=== PATIENT | male | born 1940 | race Caucasian/White ===

== ENCOUNTER 2019-02-04 23:03 | Inpatient (IN) | payer MEDICARE, OTHER ==
[~2019-02-04] VITALS: Ht 170.2 cm; Wt 74.8 kg
[2019-02-04] MEDS ORDERED: NAMENDA10 MG PO (23:25)
[2019-02-04] MEDS ORDERED: KRILL OIL 1,001 EAC1 PO (23:25)
[2019-02-04] MEDS ORDERED: DILTIAZEM 24HR240 M4 PO (23:25)
[2019-02-04] MEDS ORDERED: CELEXA40 MG PO (23:25)
[2019-02-04] MEDS ORDERED: FUROSEMIDE20 MG (23:26)
[2019-02-04] MEDS ORDERED: DONEPEZIL HCL10 MG PO (23:27)
[2019-02-04] MEDS ORDERED: MACRODANTIN100 MG PO (23:27)
[2019-02-04] MEDS ORDERED: ALBUTEROL SULF8.5 GM INH (23:27)
[2019-02-04] MEDS ORDERED: BAYER CHEWABLE81 MG PO (23:27)
[2019-02-04] MEDS ORDERED: XANAX0.5 MG PO (23:28)
[2019-02-04] MEDS ORDERED: ALTACE10 MG PO (23:28)
[2019-02-05] VITALS (7 sets, daily range): BP systolic 125–166; BP diastolic 76–98; BMI 25.9
[2019-02-05 00:30] LABS: BASOPHILS 0.5 % (0-2); EOSINOPHILS 1.6 % (0-7); HEMATOCRIT 24.9 % (42.0-54.0); IMMATURE GRANULOCYTES 0.5 % (0-5); LYMPHOCYTES 16.8 % (15-50); MCH 21.3 pg (26.0-34.0); MCHC 28.1 g/dL (31.0-37.0); MCV 75.9 fL (80.0-100.0); MEAN PLATELET VOLUME 8.4 fL (7.4-10.4); MONOCYTES 11.1 % (2-11); NEUTROPHILS 69.5 % (40-80); RBC 3.28 10x6/uL (4.20-6.10); WBC 7.7 10x3/uL (4.8-10.8)
[2019-02-05 00:40] LABS: CALC OSMOLALITY 290 mosm/kg (275-300); CALCIUM 8.3 mg/dL (8.5-10.1); CARBON DIOXIDE 24.6 mmol/L (21.0-32.0); CHLORIDE - SERUM 109 mmol/L (98-107); GLUCOSE 124 mg/dL (74-106); POTASSIUM - SERUM 4.1 mmol/L (3.5-5.1); SODIUM 143 mmol/L (136-145); UREA NITROGEN 26 mg/dL (7-18); eGFR NON AFRICAN AMERICAN 76 mL/min (90-120)
[2019-02-05 00:41] LABS: PLATELET COUNT 208 10x3/uL (130-400)
[2019-02-05 00:42] LABS: HEMOGLOBIN 7.6 g/dL (13.5-17.5)
[2019-02-05 00:46] LABS: INR 1.22 (0.85-1.17); PROTIME 14.8 SECONDS (11.6-15.0)
[2019-02-05 00:47] LABS: APTT 33.7 SECONDS (22.8-39.4)
--- NOTE | 2019-02-05 01:00 | NUR ---
PT RESTING ON BED. DAUGHTER AT BEDSIDE. PT MAKING JOKES AT THIS TIME.
[2019-02-05 01:05] LABS: ALKALINE PHOSPHATASE 97 U/L (46-116); ALT (SGPT) 25 U/L (10-68); BILIRUBIN - TOTAL 0.36 mg/dL (0.2-1.3); CKMB 1.9 U/L (0.0-3.6); CREATINE KINASE 83 UL (21-232); MAGNESIUM - SERUM 2.1 mg/dL (1.8-2.4); PROTEIN - SERUM 6.5 g/dL (6.4-8.2); THYROID STIMULATING HORMONE 2.73 uIU/mL (0.36-3.74); TROPONIN-I 0.041 ng/mL (0.000-0.060)
[2019-02-05 01:43] LABS: APPEARANCE HAZY (CLEAR); COLOR YELLOW (YELLOW); GLUCOSE NEGATIVE (NEGATIVE); KETONE NEGATIVE (NEGATIVE); NITRITE NEGATIVE (NEGATIVE); PROTEIN NEGATIVE (NEGATIVE); SPECIFIC GRAVITY 1.015 (1.005-1.020); UROBILINOGEN NORMAL (NORMAL)
[2019-02-05 01:44] LABS: BACTERIA FEW /hpf (NEGATIVE); BILIRUBIN NEGATIVE (NEGATIVE); EPITHELIAL CELLS NSEEN /hpf (0-5); RED CELLS - URINE RARE /hpf (0-5)
[2019-02-05 01:50] LABS: UDS - AMPHET NEGATIVE QUAL (NEGATIVE); UDS - BARB NEGATIVE QUAL (NEGATIVE); UDS - BENZO POSITIVE QUAL (NEGATIVE); UDS - COCAINE NEGATIVE QUAL (NEGATIVE); UDS - OPIATE NEGATIVE QUAL (NEGATIVE); UDS - PCP NEGATIVE QUAL (NEGATIVE); UDS - THC NEGATIVE QUAL (NEGATIVE)
--- NOTE | 2019-02-05 03:44 | NUR ---
NO TELEMETRY MONITORS AVAILABLE.
--- NOTE | 2019-02-05 08:30 | NUR ---
PATIENT PULLED IV OUT WITH CATH TIP INTACT. BLOOD ON FLOOR, BED AND GOWN. CLEANED UP AND RESTARTED IV IN RIGHT FA X 1 STICK. PATIENT TOLERATED WITH SMALL AMOUNT OF PAIN. BLOOD RESTARTED AT THIS TIME. FAMILY AT BEDSIDE. PATIENT BACK TO BED. BED ALARM ON. CALL IGHT WITHIN REACH.
--- NOTE | 2019-02-05 09:20 | NUR ---
PATIENT IN BED WITH EYES CLOSED AT THIS TIME. IV INTACT. BLOOD FINISHED VS STABLE. PATIENT A LITTLE TACHYCARDIAC AT 108. CALLED MONITOR STATION AGAIN. STATED NO TELE AVAILABLE AT THIS TIME. PATIENT PULSE WAS READING 128 ON LAST VS. TOLL BRIDGE OPERATOR STATED HE WAS MOVING AROUND WHILE TRYING TO TAKE VS. WILL CONTINUE TO MONITOR. ASKED COSTA FROM MONITOR STATION TO LET ME KNOW WHEN ON BECOMES AVAILABLE FOR PATIENT. VERBALIZED UNDERSTANDING.
--- NOTE | 2019-02-05 12:45 | NUR ---
PATIENT REFUSING TO GET IN SHOWER. SPOKE WITH DAUGHTER EARLIER AND SHE STATED SHE WANTED HIM TO HAVE A SHOWER. TRIED TO HELP PATIENT OFF OF TOILET AND INTO SHOWER AT THIS TIME. REFUSES TO GET UP AND STATED HE IS WAITING FOR HIS . EXPLAINED I WOULD WAIT FOR AND DAUGHTER TO GET BACK. VERBALIZED UNDERSTANDING. CALL LIGHT WITHIN REACH.
--- NOTE | 2019-02-05 14:00 | NUR ---
PATIET IN BED WITH EYES CLOSED RESTING QUIETLY. CALL LIGHT WITHIN REACH.FAMILY AT BEDSIDE.
--- NOTE | 2019-02-05 18:15 | NUR ---
CHANGED PATIENTS SHEETS AT THIS TIME. ASKED ENAMEL SHADER TO ASK KNITTING SUPERVISOR ENAMEL SHADER TO LET THEM KNOW THE PATIENT WOULD LIKE A SHOWER. VERBALIZED UNDERSTANDING. CALL LIGHT WITHIN REACH.
[2019-02-05 18:50] LABS: % SATURATION 10 % (15-55); IRON 51 ug/dl (35-150); TOTAL IRON BIND CAPACITY 469 ug/dl (260-445); UNSAT IRON BIND CAPACITY 418 ug/dl (150-375)
[2019-02-05 18:57] LABS: CKMB 1.7 U/L (0.0-3.6); CREATINE KINASE 73 UL (21-232); TROPONIN-I 0.055 ng/mL (0.000-0.060)
--- NOTE | 2019-02-05 19:15 | NUR ---
PATIENT ALERT, CONFUSED TO TIME, PLACE, AND SITUATION. AND TWO DAUGHTERS AT BEDSIDE. PATIENT HAS RIGHT FOREARM IV THAT IS SALINE LOCKED AT THIS TIME. PATIENT INCONTINENT TO URINE AT TIMES. GETS UP TO THE BATHROOM WITH ASSISTANCE. FALL PRECAUTIONS IN PLACE. DISCUSSED PLAN OF CARE WITH FAMILY. FAMILY VERBALIZES UNDERSTANDING. DENIES FURTHER NEEDS AT THIS TIME. CALL LIGHT IN REACH. PROVIDED EDUCATION TO FAMILY AND PATIENT ON HOW TO USE. DENIES FURTHER NEEDS AT THIS TIME. CPOC.
--- NOTE | 2019-02-06 00:02 | NUR ---
PATIENT UPSET WITH . YELLING AND IRRITABLE. CALLED POPCORN VENDOR FOR GINA BURROUGHS.
[2019-02-06 01:01] LABS: CKMB 1.2 U/L (0.0-3.6); CREATINE KINASE 69 UL (21-232); TROPONIN-I 0.053 ng/mL (0.000-0.060)
--- NOTE | 2019-02-06 02:09 | NUR ---
I have reviewed this patient and I concur with the Shift Assessment completed by the Licensed Practical Nurse today this shift.
[2019-02-06 05:31] VITALS: BP 151/83
[2019-02-06 06:49] LABS: BASOPHILS 0.3 % (0-2); EOSINOPHILS 0.9 % (0-7); HEMATOCRIT 25.1 % (42.0-54.0); IMMATURE GRANULOCYTES 0.1 % (0-5); LYMPHOCYTES 12.3 % (15-50); MCH 21.9 pg (26.0-34.0); MCHC 29.1 g/dL (31.0-37.0); MCV 75.1 fL (80.0-100.0); MEAN PLATELET VOLUME 9.2 fL (7.4-10.4); MONOCYTES 10.4 % (2-11); PLATELET COUNT 214 10x3/uL (130-400); RBC 3.34 10x6/uL (4.20-6.10); WBC 6.7 10x3/uL (4.8-10.8)
--- NOTE | 2019-02-06 06:55 | NUR ---
CONFUSED, A&O X 1. NO C/O PAIN. NO S/S OF ACUTE DISTRESS NOTED. IV TO RIGHT FOREARM, SL. SITE PATENT WITHOUT REDNESS OR SWELLING. HGB 7.3 THIS AM. JENNIFER ALARM ON. DENIES ANY NEEDS AT THIS TIME. CALL LIGHT IN REACH. WILL CONTINUE TO MONITOR.
[2019-02-06 07:10] LABS: HEMOGLOBIN 7.3 g/dL (13.5-17.5)
[2019-02-06 07:23] LABS: CALC OSMOLALITY 286 mosm/kg (275-300); CALCIUM 8.1 mg/dL (8.5-10.1); CARBON DIOXIDE 24.7 mmol/L (21.0-32.0); CHLORIDE - SERUM 107 mmol/L (98-107); CKMB 1.3 U/L (0.0-3.6); CREATINE KINASE 70 UL (21-232); CREATININE - SERUM 1.1 mg/dL (0.6-1.3); GLUCOSE 91 mg/dL (74-106); MAGNESIUM - SERUM 1.9 mg/dL (1.8-2.4); POTASSIUM - SERUM 3.9 mmol/L (3.5-5.1); SODIUM 142 mmol/L (136-145); UREA NITROGEN 25 mg/dL (7-18); eGFR NON AFRICAN AMERICAN 68 mL/min (90-120)
[2019-02-06 08:25] VITALS: BP 121/78
[2019-02-06 13:07] VITALS: BP 137/90
[2019-02-06 13:31] LABS: % SATURATION 5 % (15-55); IRON 23 ug/dl (35-150); TOTAL IRON BIND CAPACITY 428 ug/dl (260-445); UNSAT IRON BIND CAPACITY 405 ug/dl (150-375)
[2019-02-06 13:51] VITALS: Ht 170.2 cm; Wt 74.8 kg
--- NOTE | 2019-02-06 14:39 | NUR ---
OT NOTE: PT REQUIRED EXTENSIVE COG CUES FOR SAFETY TO DECREASE FALL RISK. PT COMPLETED TOILETING TASKS WITH HYGIENE. PT REQUIRED MOD A FOR HYGIENE TASKS. PT COMPLETED BUE AROM AXS. PT COMPLETED ADL MOB WITH CGA SECONDARY TO DECREASED SAFETY AWARENESS. [phone] THANK YOU, BARBARA RIGGS
--- NOTE | 2019-02-06 15:49 | NUR ---
I have reviewed this patient and I concur with the Shift Assessment completed by the Licensed Practical Nurse today this shift.
--- NOTE | 2019-02-06 19:45 | NUR ---
PT SITTING UP IN BED WITHOUT DISTRESS, ALERT AND ORIENTED TO SELF ONLY. DAUGHTER AT BEDSIDE. IV LEFT FA INFUSING IRON AT THIS TIME. PT AND FAMILY DENY NEEDS AT THIS TIME. CL IN REACH, WILL CTM
[2019-02-06 20:30] VITALS: BP 116/72
[2019-02-07 00:22] VITALS: BP 130/82
[2019-02-07 04:45] VITALS: BP 129/85
[2019-02-07 05:30] LABS: BASOPHILS 0.3 % (0-2); EOSINOPHILS 2.4 % (0-7); HEMATOCRIT 28.1 % (42.0-54.0); HEMOGLOBIN 8.5 g/dL (13.5-17.5); IMMATURE GRANULOCYTES 0.1 % (0-5); MCH 22.9 pg (26.0-34.0); MCHC 30.2 g/dL (31.0-37.0); MCV 75.7 fL (80.0-100.0); MEAN PLATELET VOLUME 9.5 fL (7.4-10.4); MONOCYTES 11.8 % (2-11); NEUTROPHILS 68.4 % (40-80); PLATELET COUNT 221 10x3/uL (130-400); RBC 3.71 10x6/uL (4.20-6.10); RDW 17.3 % (11.5-14.5)
[2019-02-07 05:33] LABS: ANION GAP 12.2 mmol/L (8-16); CALCIUM 8.2 mg/dL (8.5-10.1); CARBON DIOXIDE 26.6 mmol/L (21.0-32.0); CREATININE - SERUM 1.2 mg/dL (0.6-1.3); MAGNESIUM - SERUM 1.9 mg/dL (1.8-2.4); POTASSIUM - SERUM 3.8 mmol/L (3.5-5.1)
--- NOTE | 2019-02-07 06:55 | NUR ---
RESTING IN BED, EYES CLOSED. RESPIRATIONS EVEN AND UNLABORED. NO S/S OF ACUTE DISTRESS NOTED. ON 2L O2, NC. IV TO LEFT FOREARM, SL. SITE PATENT WITHOUT REDNESS OR SWELLING. DENIES ANY NEEDS AT THIS TIME. CALL LIGHT IN REACH. JENNIFER ALARM ON. FAMILY AT BEDSIDE. WILL CONTINUE TO MONITOR.
[2019-02-07 08:43] VITALS: BP 107/57
--- NOTE | 2019-02-07 14:18 | NUR ---
OT NOTE: PT REMAINS CONFUSED BUT NOT AGITATED YESTERDAY. ASSISTED WITH BED MOB AND REQUIRED MAX ASSIST DUE TO DIFFICULTY FOLLOWING COMMANDS AND COORDINATING MOVEMENTS. PROVIDED WITH DIET COKE AND SAT PT UP IN BED TO PREVENT ASPIRATION. PT REQUIRED ASSIST WITH MEAL TODAY. SANDEEP IZAGUIRRE, OTR/L [phone]
--- NOTE | 2019-02-07 16:08 | NUR ---
OT NOTE: PT REQURED EXTENSIVE VERBAL CUES FOR SEQUENCING AND COMPREHENSION OF SOME TASKS. PT DOES APPEAR LESS CONFUSED THAN PREVIOUS SESSION. PT COMPLETED BED MOB TASKS WITH MIN A. PT COMPLETED ADL MOB WITH MIN A. PT COMPLETED TOILETING WITH CUES. PT COMPLETED UE AROM AXS WITH FUNCTIONAL TASKS. FAMILY PRESENT. [phone] THANK YOU,BARBARA RIGGS
[2019-02-07 16:54] VITALS: BP 128/80
--- NOTE | 2019-02-07 18:33 | NUR ---
I have reviewed this patient and I concur with the Shift Assessment completed by the Licensed Practical Nurse today this shift.
--- NOTE | 2019-02-07 18:44 | NUR ---
SITTING UP IN BED EATING. DENIES ANY NEEDS AT THIS TIME. CALL LIGHT IN REACH JENNIFER ALARM ON. WILL CONTINUE TO MONITOR.
[2019-02-07 19:30] VITALS: BP 141/94
--- NOTE | 2019-02-07 20:00 | NUR ---
PT SITTING UP IN BED WITHOUT DISTRESS, ORIENTED TO SELF ONLY. AT BEDSIDE. PT DENIES NEEDS OR PAIN. IV LEFT FA INFUSING IRON. CL IN REACH, WILL CTM
--- NOTE | 2019-02-07 23:00 | NUR ---
PT AND DAUGHTER STATE PT IS GETTING AGITATED AND ASKED IF HE COULD HAVE SOMETHING TO HELP HIM SETTLE DOWN AND SLEEP. TALKED WITH NITHYA GOETZ APN ABOUT XANAX, STATED TO CHANGE TO QHSPRN. PT PALMS OF HANDS AND SOLE OF FEETS RED. FAMILY STATES PT IS SCRATCHING THEM LIKE THEY ITCH. ASKED PT, HE DENIES ANY PAIN/ITCHING. STATES HE IS COMFORTABLE. WARM TO TOUCH, TEMP NORMAL. NO REDNESS ANYWHERE ELSE. TOLD NITHYA, STATES TO SLOW VANC INFUSION DOWN FROM 125 TO 75. WILL CTM
[2019-02-08 00:30] VITALS: BP 119/77
[2019-02-08 05:30] VITALS: BP 128/74
[2019-02-08 06:24] LABS: BASOPHILS 0.5 % (0-2); EOSINOPHILS 3.1 % (0-7); HEMATOCRIT 26.9 % (42.0-54.0); HEMOGLOBIN 7.8 g/dL (13.5-17.5); IMMATURE GRANULOCYTES 0.2 % (0-5); LYMPHOCYTES 20.1 % (15-50); MCH 22.2 pg (26.0-34.0); MCV 76.6 fL (80.0-100.0); MONOCYTES 12.1 % (2-11); PLATELET COUNT 203 10x3/uL (130-400); RBC 3.51 10x6/uL (4.20-6.10); RDW 18.2 % (11.5-14.5); WBC 6.4 10x3/uL (4.8-10.8)
[2019-02-08 06:47] LABS: ANION GAP 11.8 mmol/L (8-16); CARBON DIOXIDE 26.7 mmol/L (21.0-32.0); CREATININE - SERUM 1.2 mg/dL (0.6-1.3); POTASSIUM - SERUM 3.5 mmol/L (3.5-5.1)
[2019-02-08 08:08] VITALS: BP 162/97
--- NOTE | 2019-02-08 12:53 | NUR ---
OT NOTE: MET WITH PTS DTR TODAY. SHE IS EXHAUSTED AND REPORTS THAT PT IS NOT SLEEPING AT NIGHT. REPORTS THAT HE IS MORE CONFUSED THAN USUAL DUE TO MEDS. DTR IS CONCERNED THAT HER MOTHER WILL BE UNABLE TO CARE FOR PT AT THIS TIME. DISCUSSED IN LENGTH REGARDING IP REHAB, INSURANCE, QUALIFICATION, ETC. TOLD HER I WOULD LEAVE MESSAGE WITH CM REGARDING INTEREST IN REHAB. SANDEEP IZAGUIRRE, OTR/L [phone]
--- NOTE | 2019-02-08 14:52 | NUR ---
OT NOTE: PTS DAUGHTER STATED PT DID NOT SLEEP WELL. PT COMPLETED SUPINE TO SIT WITH EXTENSIVE VERBAL CUES. PT COMPLETED ADL MOB TO TOILET WITH CGA. PT EXHIBITS POOR SAFETY AWARENESS WITH DYNAMIC ACTIVITES. PT REQUIRED MIN A FOR TOILETING TASKS. PT COMPLETED UE AROM AXS WITH FUNCTIONAL ADL TASKS. [phone] THANK YOU,BARBARA RIGGS
[2019-02-08 17:03] VITALS: BP 122/90
--- NOTE | 2019-02-08 17:54 | NUR ---
I have reviewed this patient and I concur with the Shift Assessment completed by the Licensed Practical Nurse today this shift.
--- NOTE | 2019-02-08 18:35 | NUR ---
YELLING AT AND TRYING TO GET OUT OF BED. GAVE PRN MEDS PER 'S REQUEST. CONFUSED BUT ALERT. IV TO THE LT FOREARM WITH NO REDNESS OR SWELLING NOTED. JENNIFER ALARM ON. NO NEEDS NOTED AT THIS TIME. CONTINUE TO MONITOR.
[2019-02-08 20:00] VITALS: BP 140/90
[2019-02-09] VITALS: BP 129/91
[2019-02-09 04:00] VITALS: BP 137/97
[2019-02-09 04:51] LABS: BASOPHILS 0.3 % (0-2); EOSINOPHILS 3.5 % (0-7); HEMATOCRIT 29.3 % (42.0-54.0); HEMOGLOBIN 8.7 g/dL (13.5-17.5); IMMATURE GRANULOCYTES 0.4 % (0-5); LYMPHOCYTES 18.5 % (15-50); MCH 23.1 pg (26.0-34.0); MCHC 29.7 g/dL (31.0-37.0); MCV 77.9 fL (80.0-100.0); MEAN PLATELET VOLUME 8.8 fL (7.4-10.4); MONOCYTES 12.4 % (2-11); NEUTROPHILS 64.9 % (40-80); PLATELET COUNT 200 10x3/uL (130-400); RBC 3.76 10x6/uL (4.20-6.10); RDW 18.4 % (11.5-14.5); WBC 6.9 10x3/uL (4.8-10.8)
[2019-02-09 05:19] LABS: CALC OSMOLALITY 291 mosm/kg (275-300); CALCIUM 8.2 mg/dL (8.5-10.1); CARBON DIOXIDE 26.8 mmol/L (21.0-32.0); CHLORIDE - SERUM 110 mmol/L (98-107); CREATININE - SERUM 0.9 mg/dL (0.6-1.3); GLUCOSE 90 mg/dL (74-106); POTASSIUM - SERUM 3.1 mmol/L (3.5-5.1); SODIUM 145 mmol/L (136-145); VANCOMYCIN - TROUGH 13.6 ug/mL (10.0-20.0); eGFR NON AFRICAN AMERICAN 86 mL/min (90-120)
[2019-02-09 05:20] LABS: UREA NITROGEN 20 mg/dL (7-18)
--- NOTE | 2019-02-09 07:43 | NUR ---
PT IS WITHOUT DISTRESS. DOLORES ASSISTING TO BATHROOM.FALL PREVENTION IN PLACE
--- NOTE | 2019-02-09 12:12 | NUR ---
Rehab Note- Acute Inpatient Rehab prescreen order received. The patient is a good inpatient acute rehab candidate. Will accept to [facility] Acute Inpatient Rehab if in agreeance when medically stable and ready for discharge from the acute hospital. Will follow at this time. Thank you for this referral! Hortensia Fowler RN CLinical Liaison, [facility] Rehab
[2019-02-09 12:36] VITALS: BP 134/80
--- NOTE | 2019-02-09 13:11 | NUR ---
Nutrition follow-up: Pt with sandy-psych darien pending Labs reviewed Diet: Low sodium PO intake ~50% of meals Wt: 165# Will continue to provide food choices and honor food preferences. Will offer nutritional supplements. RDN following.
--- NOTE | 2019-02-09 14:59 | NUR ---
PT K+ IS 3.1 TODAY ADMINISTERED PRN K+ PER ELECTROLYTE PROTOCOL, PER PT DAUGHTER PLEASE HOLD ATIVAN TONIGHT IT MAKES PT JUMPY WILL PASS ALONG IN REPORT TO PM NURSE. NO OTHER NEEDS VOICED, OT IN WITH PT AT THE MOMENT WELL PT. CONTINUE WITH PLAN OF CARE
--- NOTE | 2019-02-09 15:28 | NUR ---
OT NOTE: EXTENSIVE TIME REQUIRED TO ENCOURAGE PT TO GET TO EOB.. AMB TO BATHROOM WITH OUTDOOR RECREATION SPECIALIST; TRANSFERRED TO TOILET WITH MIN ASSIST. PT VERY DISTRACTED TODAY..UNABLE TO GO TO BATHROOM. AMB WITH OUTDOOR RECREATION SPECIALIST X 2 X 200 FT.. PT SOB UPON RETURNING TO ROOM. UNSTEADY GAIT WITH ATTEMPTS TO NOT USE WALKER, HOWEVER, PT HOLDING WALKER IN THE AIR WHEN IN USE. REMAINS VERY CONFUSED AND DISORIENTED. SANDEEP IZAGUIRRE, OTR/L
[2019-02-09 16:40] VITALS: BP 123/78
--- NOTE | 2019-02-09 17:07 | MORECARE ---
CASE MANAGEMENT DISCHARGE SUMMARY PATIENT: JEAN MARIE LEIVA UNIT: [id number] ADM DATE: 02/05/19 AGE: 78 : 39 SEX: M ROOM/BED: D.2223 AUTHOR: JESSICA,DOC PHYSICIAN: REFERRING PHYSICIAN: ARIELA HILLMAN MD DATE OF SERVICE: 02/09/19 Discharge Plan Patient Name: JEAN MARIE LEIVA Facility: [facility]:[place] : 1940 Planned Disposition: Inpatient Rehab Anticipated Discharge Date: Discharge Date: Expected LOS: Initial Reviewer: [email or web address] Initial Review Date: 02/09/2019 Generated: 02/09/19 6:06 pm Comments DCP- Discharge Planning Updated by [email or web address]: Vandana Joshi on 02/09/19 4:[address] Patient Name: JEAN MARIE LEIVA Admission Status: ER Accout number: [id number] Admission Date: 02-05-2019 : 1940 Admission Diagnosis: Attending: ARIELA HILLMAN Current LOS: 4 Anticipated DC Date: Planned Disposition: Inpatient Rehab Primary Insurance: MEDICARE A & B Discharge Planning Comments: CM met with patient's daughter in the room per her request to discuss discharge planning. She states that he lives with his . She states his sets up his medication for him and also helps with bathing. His daughter states that she feels he needs some rehab before returning home because he has gotten to be too much for his to handle. States she is fearful that he will fall. I discussed the option of inpatient rehab vs SNF and gave her a list of both. She states she would like inpatient rehab because he was downstrairs after his heart surgery, and he did well for awhile. NENA for inpatient rehab at [facility] signed by daughter. CM will continue to follow and assist with discharge planning/needs. Echocardiography Radiology Technologist: Vandana Joshi DCPIA - Discharge Planning Initial Assessment Updated by [email or web address]: Vandana Joshi on 02/09/19 5:03 pm * Is the patient Alert and Oriented? No * How many steps to enter\exit or inside your home? 04/08 flight * PCP Dr. Senthil Howard * Pharmacy [facility] [address] * Preadmission Environment Home with Family * ADLs Partial Dependent * Partial ADLs (Assistance needed) Bathing Medication Management * Equipment Shower Chair * List name and contact numbers for known caregivers / representatives who currently or will assist patient after discharge: Nelda Burton - DTR - [phone] Yamilet Leiva - spouse - [phone] * Verbal permission to speak to the caregivers and representatives has been obtained from the patient. Yes * Community resources currently utilized Other * Please name any agencies selected above. The [facility] from : * Additional services required to return to the preadmission environment? Yes * Can the patient safely return to the preadmission environment? Yes * Has this patient been hospitalized within the prior 30 days at any hospital? No Patient Name: JEAN MARIE LEIVA Page [phone] at 1707 All edits/amendments must be made on the electronic document DICTATION DATE: 02/09/191706 MINE FOREMAN: KENDALL 02/09/191706 RPT#: [id number] DC DATE: STATUS: ADM IN [facility] [address] [place] [address] END OF REPORT
[2019-02-09 20:00] VITALS: BP 135/87
--- NOTE | 2019-02-09 20:00 | NUR ---
ALERT BUT CONFUSED TO TIME AND SITUATION. BECAME AGGITTATED WITH AND YELLING AT HER. STAFF X4 TO GET PT BACK IN BED AND CALM. WAS TOLD IN REPORT THAT DAUGHTER DID NOT WANT ANITPSYCOTICS GIVEN. TRIED TO CALL WITH NO SUCCESS. DAUGHTER ARRIVED TWENTY MINUTES LATER AND STILL REQUESTED PRN MEDS TO NOT BE GIVEN. IV TO THE LT FOREARM WITH NO SWELLING OR REDNESS NOTED. JENNIFER ALARM ON. DAUGHTER AT BEDSIDE. WILL CONTINUE TO MONITOR.
[2019-02-10] VITALS: BP 122/82
[2019-02-10 03:32] LABS: APPEARANCE CLEAR (CLEAR); BILIRUBIN NEGATIVE (NEGATIVE); COLOR YELLOW (YELLOW); GLUCOSE NEGATIVE (NEGATIVE); KETONE NEGATIVE (NEGATIVE); NITRITE NEGATIVE (NEGATIVE); PROTEIN 1+ mg/dL (NEGATIVE)
[2019-02-10 03:34] LABS: BACTERIA FEW /hpf (NEGATIVE); EPITHELIAL CELLS 0-5 /hpf (0-5); RED CELLS - URINE 0-5 /hpf (0-5); WHITE CELLS - URINE 0-5 /hpf (NEGATIVE)
[2019-02-10 04:00] VITALS: BP 145/96
--- NOTE | 2019-02-10 04:30 | NUR ---
PULLED OUT IV WITH CATH INTACT. BLOOD ALL OVER GOWN AND BED. CHANGED BED AND GOWN. RESITED IV TO THE LT UPPER ARM. DENIES NO OTHER NEEDS AT THIS TIME. CONTINUE PLAN OF CARE.
[2019-02-10 05:19] LABS: BASOPHILS 0.3 % (0-2); EOSINOPHILS 2.3 % (0-7); HEMATOCRIT 29.9 % (42.0-54.0); HEMOGLOBIN 8.8 g/dL (13.5-17.5); IMMATURE GRANULOCYTES 0.5 % (0-5); LYMPHOCYTES 20.2 % (15-50); MCHC 29.4 g/dL (31.0-37.0); MCV 78.3 fL (80.0-100.0); MEAN PLATELET VOLUME 9.2 fL (7.4-10.4); MONOCYTES 12.9 % (2-11); NEUTROPHILS 63.8 % (40-80); PLATELET COUNT 207 10x3/uL (130-400); RBC 3.82 10x6/uL (4.20-6.10); RDW 19.3 % (11.5-14.5); WBC 7.8 10x3/uL (4.8-10.8)
[2019-02-10 06:20] LABS: CALC OSMOLALITY 293 mosm/kg (275-300); CALCIUM 8.3 mg/dL (8.5-10.1); CARBON DIOXIDE 27.9 mmol/L (21.0-32.0); CHLORIDE - SERUM 109 mmol/L (98-107); GLUCOSE 92 mg/dL (74-106); PHOSPHOROUS 2.7 mg/dL (2.5-4.9); POTASSIUM - SERUM 3.9 mmol/L (3.5-5.1); SODIUM 145 mmol/L (136-145); eGFR NON AFRICAN AMERICAN 76 mL/min (90-120)
[2019-02-10 06:21] LABS: UREA NITROGEN 27 mg/dL (7-18)
[2019-02-10 08:29] VITALS: BP 161/88
[2019-02-10 12:52] VITALS: BP 141/87
--- NOTE | 2019-02-10 16:01 | MORECARE ---
CASE MANAGEMENT DISCHARGE SUMMARY PATIENT: JEAN MARIE LEIVA UNIT: [id number] ADM DATE: 02/05/19 AGE: 78 : 39 SEX: M ROOM/BED: D.2223 AUTHOR: JESSICADOC PHYSICIAN: REFERRING PHYSICIAN: ARIELA HILLMAN MD DATE OF SERVICE: 02/10/19 Discharge Plan Patient Name: JEAN MARIE LEIVA Facility: [facility]:[place] : 1940 Planned Disposition: Inpatient Rehab Anticipated Discharge Date: Discharge Date: Expected LOS: Initial Reviewer: [email or web address] Initial Review Date: 02/09/2019 Generated: 02/10/19 5:01 pm Comments DCP- Discharge Planning Updated by [email or web address]: Vandana Joshi on 02/10/19 3:[address] Discharging to inpatient rehab today at [facility]. Family in agreement. DCP- Discharge Planning Updated by [email or web address]: Vandana Joshi on 02/09/19 4:[address] Patient Name: JEAN MARIE LEIVA Admission Status: ER Accout number: [id number] Admission Date: 02-05-2019 : 1940 Admission Diagnosis: Attending: ARIELA HILLMAN Current LOS: 4 Anticipated DC Date: Planned Disposition: Inpatient Rehab Primary Insurance: MEDICARE A & B Discharge Planning Comments: CM met with patient's daughter in the room per her request to discuss discharge planning. She states that he lives with his . She states his sets up his medication for him and also helps with bathing. His daughter states that she feels he needs some rehab before returning home because he has gotten to be too much for his to handle. States she is fearful that he will fall. I discussed the option of inpatient rehab vs SNF and gave her a list of both. She states she would like inpatient rehab because he was downstrairs after his heart surgery, and he did well for awhile. NENA for inpatient rehab at [facility] signed by daughter. CM will continue to follow and assist with discharge planning/needs. Striker Out: Vandana Joshi DCPIA - Discharge Planning Initial Assessment Updated by [email or web address]: Vandana Joshi on 1/2/20 5:03 pm * Is the patient Alert and Oriented? No * How many steps to enter\exit or inside your home? 04/08 flight * PCP Dr. Senthil Howard * Pharmacy [facility] [address] * Preadmission Environment Home with Family * ADLs Partial Dependent * Partial ADLs (Assistance needed) Bathing Medication Management * Equipment Shower Chair * List name and contact numbers for known caregivers / representatives who currently or will assist patient after discharge: Nelda Burton - DTR - [phone] Yamilet Leiva - spouse - [phone] * Verbal permission to speak to the caregivers and representatives has been obtained from the patient. Yes * Community resources currently utilized Other * Please name any agencies selected above. The [facility] - from :-2 * Additional services required to return to the preadmission environment? Yes * Can the patient safely return to the preadmission environment? Yes * Has this patient been hospitalized within the prior 30 days at any hospital? No Coverage Notice Reviewer: [email or web address] Ashok Joshi Notice Issued Date-Time: 02/09/2019 17:07 Notice Type: Patient Choice Letter Notice Delivered To: Family Member Relationship to Patient: Daughter Professional Bondsman Name: Delivery Method: HAND - Hand Delivered Varsha Days: Prior Verbal Notification: Recipient Understood Notice: Yes Recipient Signature: Yes Med Rec Note Co-signed by Attending: Coverage Notice Comment: NENA for [facility] inpatient rehab Reviewer: [email or web address] Joshi Notice Issued Date-Time: 02/10/2019 14:19 Notice Type: IM Discharge Notice Notice Delivered To: Family Member Relationship to Patient: Spouse Professional Bondsman Name: Zakia Leiva Delivery Method: HAND - Hand Delivered Varsha Days: Prior Verbal Notification: Recipient Understood Notice: Yes Recipient Signature: Yes Med Rec Note Co-signed by Attending: Coverage Notice Comment: IMM explained, signed, given, copy placed in MR Last DP export: 02/09/19 4:07 pm Patient Name: JEAN MARIE LEIVA Page [id number] at 1601 All edits/amendments must be made on the electronic document DICTATION DATE: 02/10/19 1601 REGISTRATION REP: KENDALL 02/10/19 1601 RPT#: [id number] DC DATE: STATUS: ADM IN [facility] [address] [place] [address] END OF REPORT
[2019-02-10] MEDS ORDERED: VANCOMYCIN 1 GM/1 G1 IV (16:18)
--- NOTE | 2019-02-10 16:20 | CN ---
PATIENT NAME:JEAN MARIE CARPENTER MEDICAL RECORD: [id number] : 38 LOCATION:D.MS [address]23 ADMIT DATE: 02/05/19 ACCOUNT: [id number] CONSULTING PHYSICIAN: EVA SOUZA MD REFERRING PHYSICIAN: ARIELA HILLMAN MD DATE OF CONSULTATION: 02/09/2019 PSYCHIATRIC EVALUATION IDENTIFYING DATA: The patient is 78 years old and he is admitted to the hospital secondary to urinary tract infection. CHIEF COMPLAINT: Confusion. HISTORY OF PRESENT ILLNESS: The patient has an established diagnosis of dementia. His who is at bedside, says he was diagnosed with dementia in 2008. 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 This is indeed the reason he is admitted to the hospital today. His daughter who is from out of town, has been sitting with him some to relieve the mother. The daughter spoke with the attending physician and was concerned that his psychiatric medications needed review and that they might be causing his confusion to worsen. I have reviewed these medications and asked the numerous questions, I have also interviewed the patient. MENTAL STATUS EXAMINATION: The patient is awake, alert and oriented to person only. His mood is euthymic and his affect is appropriate. Thought processes are disorganized and he has severe impairment of his memory, concentration, and abstraction abilities. He has no thoughts of harming himself or others and no observed psychotic symptoms. ASSESSMENT: Senile dementia of the Alzheimer's type. PLAN: The patient is currently taking both Namenda and Aricept at appropriate doses. He takes a p.r.n. Xanax at bedtime for sleep consolidation and the says that this works well at home. He is also taking a scheduled dose of Geodon for some presumed agitation. I have reviewed all of these medicines, examined the patient and questioned the about their effectiveness and see no problems with any of these. The Celexa is probably a little bit higher than what I would use, but he is not having side effects with it and so reducing it to 20 mg a day would be appropriate if he were having side effects associated with a higher than average dose of an SSRI in a 78-year-old patient. The feels that the only time his behaviors worsen or he has a significant change from his baseline level of functioning is when he has a urinary tract infection. For this reason, at this time, I would not recommend making any substantial or significant changes to his medication regimen. Follow up should be with his primary care physician. I have spoken to the about how to intervene and get assistance if she can no longer manage him at home. TRANSINT:[id number] Voice Confirmation ID: [id number] DOCUMENT ID: [id number] CONSULT REPORT [id number] JEAN MARIE CARPENTER PETER MD at 1620 CC: [id number] DICTATION DATE: 02/09/19 1544 TRUSS DRIVER HELPER: 02/09/19 1634 ADM IN [place] [id number] [place] [id number]
--- NOTE | 2019-02-10 17:48 | NUR ---
report to angela on rehab
--- NOTE | 2019-02-10 17:52 | NUR ---
discharge instructions with . she is aware pt is going to room 5569x
--- NOTE | 2019-02-10 17:56 | NUR ---
TO REHAB VIA WHEELCHAIR
--- NOTE | 2019-02-11 09:43 | MORECARE ---
CASE MANAGEMENT DISCHARGE SUMMARY PATIENT: JEAN MARIE LEIVA UNIT: [id number] ADM DATE: 02/05/19 AGE: 78 : 39 SEX: M ROOM/BED: D.2223 AUTHOR: JESSICADOC PHYSICIAN: REFERRING PHYSICIAN: ARIELA HILLMAN MD DATE OF SERVICE: 02/11/19 Discharge Plan Patient Name: JEAN MARIE LEIVA Facility: [facility]:[place] : 1940 Planned Disposition: Inpatient Rehab Anticipated Discharge Date: Discharge Date: 02/10/2019 Expected LOS: Initial Reviewer: [id number] Initial Review Date: 02/09/2019 Generated: 02/11/19 10:42 am Comments DCP- Discharge Planning Updated by [email or web address]: Vandana Joshi on 02/10/19 3:[address] Discharging to inpatient rehab today at [facility]. Family in agreement. DCP- Discharge Planning Updated by [email or web address]: Vandana Joshi on 02/09/19 4:[address] Patient Name: JEAN MARIE LEIVA Admission Status: ER Accout number: [id number] Admission Date: 02-05-2019 : 1940 Admission Diagnosis: Attending: ARIELA HILLMAN Current LOS: 4 Anticipated DC Date: Planned Disposition: Inpatient Rehab Primary Insurance: MEDICARE A & B Discharge Planning Comments: CM met with patient's daughter in the room per her request to discuss discharge planning. She states that he lives with his . She states his sets up his medication for him and also helps with bathing. His daughter states that she feels he needs some rehab before returning home because he has gotten to be too much for his to handle. States she is fearful that he will fall. I discussed the option of inpatient rehab vs SNF and gave her a list of both. She states she would like inpatient rehab because he was downstrairs after his heart surgery, and he did well for awhile. NENA for inpatient rehab at [facility] signed by daughter. CM will continue to follow and assist with discharge planning/needs. Roll Filler: Vandana Joshi DCPIA - Discharge Planning Initial Assessment Updated by [email or web address]: Vandana Joshi on 02/09/19 5:03 pm * Is the patient Alert and Oriented? No * How many steps to enter\exit or inside your home? 04/08 flight * PCP Dr. Senthil Howard * Pharmacy [facility] [address] * Preadmission Environment Home with Family * ADLs Partial Dependent * Partial ADLs (Assistance needed) Bathing Medication Management * Equipment Shower Chair * List name and contact numbers for known caregivers / representatives who currently or will assist patient after discharge: Nelda Burton - DTR - [phone] Yamilet Leiva - spouse - [phone] * Verbal permission to speak to the caregivers and representatives has been obtained from the patient. Yes * Community resources currently utilized Other * Please name any agencies selected above. [facility] - - from :30-2 * Additional services required to return to the preadmission environment? Yes * Can the patient safely return to the preadmission environment? Yes * Has this patient been hospitalized within the prior 30 days at any hospital? No Coverage Notice Reviewer: [email or web address] Ashok Joshi Notice Issued Date-Time: 02/09/2019 17:07 Notice Type: Patient Choice Letter Notice Delivered To: Family Member Relationship to Patient: Daughter Urgent Care Physician Name: Delivery Method: HAND - Hand Delivered Varsha Days: Prior Verbal Notification: Recipient Understood Notice: Yes Recipient Signature: Yes Med Rec Note Co-signed by Attending: Coverage Notice Comment: NENA for [facility] inpatient rehab Reviewer: [id number] Joshi Notice Issued Date-Time: 02/10/2019 14:19 Notice Type: IM Discharge Notice Notice Delivered To: Family Member Relationship to Patient: Spouse Urgent Care Physician Name: Zakia Leiva Delivery Method: HAND - Hand Delivered Varsha Days: Prior Verbal Notification: Recipient Understood Notice: Yes Recipient Signature: Yes Med Rec Note Co-signed by Attending: Coverage Notice Comment: IMM explained, signed, given, copy placed in MR Last DP export: 02/10/19 3:01 pm Patient Name: JEAN MARIE LEIVA Page [phone] at 0943 All edits/amendments must be made on the electronic document DICTATION DATE: 02/11/19941 EMPLOYEE DEVELOPMENT DIRECTOR: KENDALL 02/11/19941 RPT#: [id number] DC DATE:02/10/19 STATUS: DIS IN [facility] [address] [facility] [place] [address] END OF REPORT
--- NOTE | 2019-02-13 11:13 | EC ---
PATIENT:JEAN MARIE CARPENTER DATE OF SERVICE: 02/05/19 SEX: M MEDICAL RECORD: [id number] DATE OF : [birth year] LOCATION:D.MS [facility] AGE OF PATIENT: 78 ADMISSION DATE: 02/05/19 REFERRING PHYSICIAN: INTERPRETING PHYSICIAN: VICKY JOE MD ECHOCARDIOGRAM REPORT ECHO CHARGES 4 ECHO COMPLETE Date: 02/05/19 CLINICAL DIAGNOSIS: CHF HX CAD/MVR ECHOCARDIOGRAPHIC MEASUREMENTS (adult normal given) AC root (d.<3.7cm) 4.2 cm LV Septum d (<1.2 cm> 1.8 cm Valve Excursion 2.4 cm LV Septum (systole) 2.0 cm Left Atria (s.<4.0cm> 4.4 cm LVPW d(<1.2cm) 1.8 cm RV (d.<2.3cm) 6.6 cm LVPW (sytole) 2.0 cm LV diastole(<5.6CM) 5.2 cm MV E-F(>70mm/sec) cm LV systole 3.6 cm LVOT Diameter 2.1 cm MV exc.(>10mm) cm Est.ejection fraction (50-75%) % DOPPLER: LVIT cm/sec A 78.0 cm/sec E 207.0 cm/sec LA cm/sec RVSP 36 mmHg LVOT 127 cm/sec AOP1/2T m/s Asc. Ao 158 cm/sec RVOT 73 cm/sec RA cm/sec PA 114 cm/sec AV Gradient Peak 9.95 mmHg AV Mean 6.57 mmHg AV Area 2.3 cm MV Gradient Peak 22.22mmHg MV Mean 6.91 mmHg MV Area cm COMMENTS: Director Of Corporate Sponsorships: Nikos CLAY Order Caller: 1 Dr. Joe TAPE# PACS Pericardial Effusion N DATE OF SERVICE: 02/05/2019 FINDINGS: 1. Left ventricular chamber size is mildly dilated. Left ventricular systolic function is mild to moderately reduced at 35% to 40%. 2. Left atrium is enlarged at 4.4 cm. Right atrium and right ventricular chamber sizes are moderately dilated. 3. Valvular structures. The mitral valve is replaced with a bioprosthesis with normal structure and function in this position. The remaining valvular structures have normal structure and motion. ECHOCARDIOGRAM REPORT [id number] JEAN MARIE CARPENTER 4. Doppler interrogation reveals severe tricuspid regurgitation, no other valvular insufficiency or stenosis. Pulmonary systolic pressure is normal at 36 mmHg. 5. No evidence of pericardial effusion or left ventricular thrombus. TRANSINT:[id number] Voice Confirmation ID: [id number] DOCUMENT ID: [id number] VICKY JOE MD at 1113 CC: [id number] DICTATION DATE: 02/06/19926 UTILIZATION MANAGEMENT NURSE: 02/06/19 1153 DIS IN 02/10/[address] [address]
== END 2019-02-10 17:56 | DRG 689 ==
LOC: D.ER 23:03 → D.MS 02-05 02:55
PROVIDERS: Emergency Medicine; Family Medicine; ADMIT Internal Medicine Nephrology; ATTEND Internal Medicine Nephrology
DX: N39.0 Urinary tract infection, site not specified (principal); I50.23 Acute on chronic systolic (congestive) heart failure; I11.0 Hypertensive heart disease with heart failure; D64.9 Anemia, unspecified; I25.10 Atherosclerotic heart disease of native coronary artery without angina pectoris; J44.9 Chronic obstructive pulmonary disease, unspecified; N40.0 Benign prostatic hyperplasia without lower urinary tract symptoms; G30.9 Alzheimer's disease, unspecified; M19.90 Unspecified osteoarthritis, unspecified site; I07.1 Rheumatic tricuspid insufficiency

== ENCOUNTER 2019-02-10 13:00 | Inpatient (IN) | payer MEDICARE, OTHER ==
[~2019-02-10] VITALS: Ht 175.3 cm; Wt 79.4 kg
[~2019-02-10 13:00] MED LIST: ALBUTEROL SULF8.5 GM INH; ALTACE10 MG PO; BAYER CHEWABLE81 MG PO; CELEXA40 MG PO; DILTIAZEM 24HR240 M4 PO; DONEPEZIL HCL10 MG PO; FUROSEMIDE20 MG; KRILL OIL 1,001 EAC1 PO; MACRODANTIN100 MG PO; NAMENDA10 MG PO; XANAX0.5 MG PO
[2019-02-10] MEDS ORDERED: VANCOMYCIN 1 GM/1 G1 IV (16:18)
--- NOTE | 2019-02-10 19:30 | NUR ---
GREETED PATIENT AND INTRODUCED MYSELF HIS NURSE. PATIENT IS RESTING QUIETLY AT THIS TIME. RESPIRATIONS EVEN. NO S/S OF DISTRESS. FAMILY MEMBER AT BEDSIDE. CALL LIGHT IN REACH.
[2019-02-10 19:45] VITALS: BP 134/90
--- NOTE | 2019-02-10 20:29 | NUR ---
WHILE TAKING PTS. VITALS PT. STATED THAT " YOU JUST NEED TO CLIMB ON TOP OF ME AND GRIND ON ME." THIS NURSE TOLD PATIENT TO NOT TALK IN THAT WAY. PT. CONTINUED TO TRY AND GRAB THIS NURSE INAPPROPIOATELY, REDIRECTED PT. TO STOP.
[2019-02-10 22:33] VITALS: BP 134/90; BMI 25.9
--- NOTE | 2019-02-11 01:21 | NUR ---
PT. AWAKE AND TRYING TO CLIMB OUT OF BED. REORIENTED PT. TO SURROUNDINGS AND STAFF. REPOSITIONED FOR COMFORT. CALL LIGHT IN REACH.
--- NOTE | 2019-02-11 03:07 | NUR ---
PT. ATTEMPTED TO GET OUT OF BED. REORIENTATED AND REDIRECTED TO SURROUNDINGS AND STAFF. REPOSITIONED FOR COMFORT. CALL LIGHT IN REACH. FAMILY MEMBER IN ADJACENT BED.
--- NOTE | 2019-02-11 05:00 | NUR ---
PT. RESTING QUIETLY WITH EYES CLOSED. RESPIRATIONS EVEN. NO S/S OF DISTRESS. CALL LIGHT IN REACH.
[2019-02-11 06:34] LABS: BASOPHILS 0.5 % (0-2); EOSINOPHILS 2.5 % (0-7); HEMATOCRIT 30.1 % (42.0-54.0); HEMOGLOBIN 8.8 g/dL (13.5-17.5); IMMATURE GRANULOCYTES 0.4 % (0-5); LYMPHOCYTES 21.8 % (15-50); MCH 23.3 pg (26.0-34.0); MCHC 29.2 g/dL (31.0-37.0); MCV 79.8 fL (80.0-100.0); MEAN PLATELET VOLUME 9.2 fL (7.4-10.4); MONOCYTES 9.7 % (2-11); NEUTROPHILS 65.1 % (40-80); PLATELET COUNT 189 10x3/uL (130-400); RBC 3.77 10x6/uL (4.20-6.10); RDW 20.5 % (11.5-14.5); WBC 7.7 10x3/uL (4.8-10.8)
[2019-02-11 06:50] LABS: CALC OSMOLALITY 290 mosm/kg (275-300); CALCIUM 8.4 mg/dL (8.5-10.1); CARBON DIOXIDE 26.9 mmol/L (21.0-32.0); CHLORIDE - SERUM 108 mmol/L (98-107); GLUCOSE 87 mg/dL (74-106); POTASSIUM - SERUM 3.8 mmol/L (3.5-5.1); SODIUM 144 mmol/L (136-145); UREA NITROGEN 27 mg/dL (7-18); eGFR NON AFRICAN AMERICAN 76 mL/min (90-120)
[2019-02-11 09:49] VITALS: Ht 175.3 cm; Wt 79.4 kg
[2019-02-11 10:45] VITALS: BP 124/81
--- NOTE | 2019-02-11 15:48 | NUR ---
PT WET IN BED. CHANGED COVER AND BLANKET. CLEANED PT'S MORE[place] AREA AND PUT IN NEW GOWN.
--- NOTE | 2019-02-11 17:35 | NUR ---
PT'S DAUGHTER BROUGHT ICECREAM FOR PT AND PT ATE MOST OF THE ICECREAM. PT ATE ABOUT 50% OF HIS DINNER.
[2019-02-11 19:59] VITALS: BP 156/68
--- NOTE | 2019-02-11 20:00 | NUR ---
PATIENT RECEIVED SITTING UP IN WHEELCHAIR EATING A SNACK. ASSESSMENT & VITAL SIGNS DONE. NO C/O PAIN OR DISTRESS. PATIENT CONFUSED. HAS TO BE REDIRECTED TO GET BACK IN CHAIR OR BED. PATIENT IS COMPLIANT. ALARM ON HIS BED. CALL LIGHT WITHINREACH. WILL CONTIN UE TO MONITOR.
--- NOTE | 2019-02-11 23:25 | NUR ---
I have reviewed this patient and I concur with the Shift Assessment completed by the Licensed Practical Nurse today this shift.
--- NOTE | 2019-02-12 01:30 | NUR ---
PATIENT REDIRECTED TO ROOM. IN BED. ALARM ON. CALL LIGHT WITHIN REACH. WILL CONTINUE TO MONITOR.
--- NOTE | 2019-02-12 04:45 | NUR ---
PATIENT CAME OUT OF ROOM. THIS NURSE DIRECTED PATIENT BACK TO ROOM. PATIENT RETURNED TO BED. PATIENT HAD TAKEN HIS IV OUT. IV WILL BE PLACED. WILL CONTINUE TO MONITOR.
--- NOTE | 2019-02-12 05:20 | NUR ---
STARTED IV RIGHT FOREARM 22G X1 ATTEMPT. FLUSHES AND DRAWS WITHOUT DIFFICULTY. TRANSPARENT DRESSING C/D/I. PT TOLERATED WELL.
--- NOTE | 2019-02-12 10:49 | NUR ---
PATIENT WAS FOUND WALKING IN THE HALLWAY. ASSISSTED PT BACK TO ROOM, PT URINATED ALL THE WAY DOWN THE HALLWAY. SAT PT BACK ONTO THE BED AND PT URINATED ALL DWN LEGS AND ONTO ROBE. THREE NURSES ASISSTED TAKING OFF THE PATIENTS WET CLOTHES. PT VERBALLY ABUSIVE, AND PHYSICALLY ABUSIVE TO NURSE. DRY GOWN PLACED ON PATIENT ALONG WITH DRY BRIEF. PT REFUSED TO HAVE DRY SOCKS PLACED ON FEET. PT RIPPED OUT IV TO THE RIGHT FOREARM. REFUSED TO HAVE NURSE LOOK AT THE SITE AND/OR RESITE IV.
--- NOTE | 2019-02-12 11:24 | NUR ---
CALLED EVS TO CLEAN UP SPILLED URINE AND MOP FLOORS. EVS CAME TO MOP. MOPPED THE ROOM AND THE HALLWAY THAT THE PATIENT HAD PEED ON. LARA STILL CURSING AT THE NURSING STAFF AND TELLING US TO GET THE F OUT OF HIS ROOM AND SWINGING HIS FIST WHEN NURSING STAFF ATTMEPTED TO CLEAN UP DIRTY LAUNDRY AND DIESEL DRAGLINE OPERATOR THE ROOM. BUSHRA FROM [facility] HAD ALREADY MOPPED THE ROOM THIS AM.
--- NOTE | 2019-02-12 11:27 | NUR ---
FAMILY ARRIVED TO VISIT THE PT. VERY UPSET WITH THE NURSING STAFF ABOUT THE WAY THE ROOM WAS NOT BEING CLEANED/PICKED UP. EXPLAINED TO THE FAMILY THAT I WAS PERSONALLY IN THE ROOM WHEN EVS CAME TO CLEAN AND MOP THE ROOM AFTER THE PATIENT HAD PEED ALL OVER THE FLOOR AND THE HALLWAY. EXPLAINED THE PATIENTS ACTIONS AND BEHAVIORS STATING THAT THE PATIENT TOLD US TO LEAVE HIS ROOM AND THAT HE WAS USING FOUL LANGUAGE AND SWINGING AT US SO WE LEFT THE ROOM SO THAT HE COULD COOL DOWN AFTER PUTTING CLEAN AND DRY CLOTHES ON THE PATIENT. THE FAMILY MEMBER SAYS THAT SHE IS STILL GOING TO REPORT THIS. THE FAMILY MEMBER CAME BACK TO THE NURSES STATION AND COMPLAINED MORE ABOUT THE WAY THE FLOOR HAS NOT BEEN MOPPED IN DAYS.
[2019-02-12 19:40] VITALS: BP 145/95
--- NOTE | 2019-02-12 20:00 | NUR ---
PATIENT RECEIVED WITH IV VANCOMYCIN RUNNING. NO S/S/OF REACTION TO VANCOMYCIN. PATIENT SITTING UP. ASSESSMENT & VITAL SIGNS DONE. NO C/O PAIN OR DISTRESS. BED LOW. ALARM ON. CALL LIGHT WITHIN REACH. WILL CONTINUE TO MONITOR.
--- NOTE | 2019-02-13 02:46 | NUR ---
I have reviewed this patient and I concur with the Shift Assessment completed by the Licensed Practical Nurse today this shift.
--- NOTE | 2019-02-13 03:40 | NUR ---
PATIENT EYES CLOSED. RESPIRATIONS 18 & EVEN. BED LOW. ALARM ON. CALL LIGHT WITHIN REACH. WILL CONTINUE TO MONITOR.
[2019-02-13 06:29] LABS: BASOPHILS 0.4 % (0-2); EOSINOPHILS 1.8 % (0-7); HEMATOCRIT 32.2 % (42.0-54.0); HEMOGLOBIN 9.4 g/dL (13.5-17.5); IMMATURE GRANULOCYTES 0.4 % (0-5); LYMPHOCYTES 21.5 % (15-50); MCH 23.6 pg (26.0-34.0); MCHC 29.2 g/dL (31.0-37.0); MCV 80.7 fL (80.0-100.0); MEAN PLATELET VOLUME 9.4 fL (7.4-10.4); MONOCYTES 13.1 % (2-11); NEUTROPHILS 62.8 % (40-80); PLATELET COUNT 219 10x3/uL (130-400); RBC 3.99 10x6/uL (4.20-6.10); RDW 21.9 % (11.5-14.5); WBC 7.4 10x3/uL (4.8-10.8)
[2019-02-13 07:00] LABS: CALC OSMOLALITY 294 mosm/kg (275-300); CALCIUM 8.1 mg/dL (8.5-10.1); CHLORIDE - SERUM 109 mmol/L (98-107); CREATININE - SERUM 0.9 mg/dL (0.6-1.3); GLUCOSE 86 mg/dL (74-106); POTASSIUM - SERUM 3.5 mmol/L (3.5-5.1); SODIUM 146 mmol/L (136-145); UREA NITROGEN 27 mg/dL (7-18); eGFR NON AFRICAN AMERICAN 86 mL/min (90-120)
[2019-02-13 07:59] VITALS: BP 115/69
--- NOTE | 2019-02-13 12:51 | NUR ---
Nutrition Follow-up: Diet: Cardiac PO intake: ~40% average x last 5 meals recorded; attempted to take to patient but he was very confused and unable to answer questions appropriately. Last BM: 02/11/19. WT: 175# (02/11/19) Meds noted: lasix, vancomycin. Labs noted: Na 146. Continue current diet. Will add Ensure with meals. RD following.
--- NOTE | 2019-02-13 16:38 | NUR ---
PATIENT ADMITTED TO REHAB FROM ACUTE FLOOR. DR. BYNUM IS HIS PCP. PATIENT IS A CLIENT OF THE [facility] AND GOES ON . FROM 10:30 - 2:00. DISCHARGE PLANS ARE FOR HIM TO RETURN HOME WITH HIS SPOUSE. WILL CONTIN EUT TO FOLLOW WITH PATIENT.
--- NOTE | 2019-02-13 17:35 | NUR ---
SITTING IN ROOM EATING SUPPER. IS CONFUSED AND HAS BEEN WANDERING UNIT. TRIES TO GO INTO OTHER PT'S ROOMS. CAN BE REDIRECTED, SO FAR, WITH STAFF ENCOURAGEMENT.
[2019-02-13 19:00] VITALS: BP 128/88
--- NOTE | 2019-02-13 19:25 | NUR ---
PT SITTING UP IN WHEELCHAIR. CL IN REACH. PT IS VERY CONFUSED. CHAIR ALARM ON AND BED ALARM. DENIES NEEDS AT THIS TIME. RESP EVEN AND UNLABORED. LUNGS CLEAR. BOWEL ACTIVE X4. RIGHT FOREARM IV INFUSING AT THIS TIME. WILL CONTINUE TO MONITOR.
--- NOTE | 2019-02-14 03:53 | NUR ---
I have reviewed this patient and I concur with the Shift Assessment completed by the Licensed Practical Nurse today this shift.
--- NOTE | 2019-02-14 07:50 | NUR ---
REPORT RECEIVED. WILL CONTINUE WITH POC. PT CURRENTLY LYING ON LEFT SIDE ASLEEP WITH EYES CLOSED AT THIS TIME. NO S/S OF DISTRESS NOTED. RR EVEN AND UNLABORED ON RA. ABX CURRENTLY INFUSING VIA R.FOR PIV. WILL CTM.
[2019-02-14 08:46] VITALS: BP 135/85
--- NOTE | 2019-02-14 11:28 | NUR ---
FALL ALARM ON AND FUNCTIONING PROPERLY. PT CONTINUES TO TRY AND GET OUT OF BED AGAINST INSTRUCTION TO CALL BEFORE EXITING BED. PT VERBALIZES UNDERSTANDING BUT CONTINUES TO GET OUT OF BED. WILL CONTINUE MONITORING AND ENSURING PT DOES NOT FALL.
--- NOTE | 2019-02-14 12:10 | NUR ---
PT CONTINUES HAVING EPISODES OF URINARY INCONTINENCE. ASSISTED PT INTO SHOWER AND GAVE FULL HCG SHOWER. APPLIED BRIEF, NEW LINEN, AND PLACED PT BACK INTO BED. MAXIMAL ASSIST REQUIRED. WILL CTM.
--- NOTE | 2019-02-14 12:35 | CN ---
PATIENT NAME:JEAN MARIE CARPENTER MEDICAL RECORD: [id number] : 38 LOCATION:[id number] ADMIT DATE: 02/10/19 ACCOUNT: [id number] CONSULTING PHYSICIAN: EVA SOUZA MD REFERRING PHYSICIAN: DEION SORENSEN MD DATE OF CONSULTATION: 02/13/2019 IDENTIFYING DATA: The patient is 78 years old and he is known to me from recent previous clinical contact. CHIEF COMPLAINT: Agitation. HISTORY OF PRESENT ILLNESS: The patient has a known history of dementia. He also has a history of recurrent urinary tract infections. He was first diagnosed with dementia in 2008. His indicates that she knows he is developing a urinary tract infection because his behavior and cognition changed. He is quite impaired cognitively, but calm and cooperative. He has no thoughts of harming himself or others. He has recently been quite agitated on the rehab unit. ASSESSMENT: Senile dementia of the Alzheimer's type. PLAN: The patient has an ongoing problem with urinary tract infections that affect his behavior. He has already been started on Zyprexa, which has helped him. When I saw him on 02/05/2019, he was receiving a scheduled dose of Geodon, which I think has been discontinued. It was working well also. I am going to change the medication to Geodon with a p.r.n. of the same medication in case his behaviors become problematic. The wants to keep him at home. I am not sure how realistic that is given the overall circumstances, but I will leave that to the treatment team on rehab to sort out. I do not think he needs to be transferred at this time to the behavioral unit, but that is certainly an option if he has ongoing issues. TRANSINT:[id number] Voice Confirmation ID: [id number] DOCUMENT ID: [id number] EVA SOUZA MD at 1235 CC: [id number] DICTATION DATE: 02/13/19 1502 WORK OVER RIG OPERATOR: 02/13/19 1551 ADM IN [place] [id number] [place] [id number]
--- NOTE | 2019-02-14 14:25 | NUR ---
PT RESTLESS AND AGITATED. CAUGHT PT UP WONDERING THE CASTELLANO AND PEEING IN THE FLOOR. WHEN ASKED PT TO RETURN TO ROOM HE REFUSED AND BEGAN TO CUSS AT ME. ADMININSTERED ORDERED DOSE OF GEODON TO PT. WILL CTM.
--- NOTE | 2019-02-14 14:30 | NUR ---
I have reviewed this patient and I concur with the Shift Assessment completed by the Licensed Practical Nurse today this shift.
--- NOTE | 2019-02-14 15:06 | NUR ---
PT SITTING ON EDGE OF BED URINATING INTO THE FLOOR. PT IS LETHARGIC AND DROWSY. PT PULLED OUT PIV WITH CATHETER TIP FULLY INTACT. CLEANED PT AND APPLIED GAUZE TO ARM. SAT PT IN BED. CALL LIGHT W/I REACH. JENNIFER ALARM IN PLACE. WILL CTM.
--- NOTE | 2019-02-14 18:45 | NUR ---
ATTEMPTED TO RESITE PIV. WAS UNSUCCESSFULL AFTER TWO ATTEMPTS. WILL NOTIFY NIGHTSHIFT. WILL CTM.
--- NOTE | 2019-02-14 19:07 | NUR ---
GREEETED PATIENT AND INTRODUCED MYSELF HIS NURSE. PATIENT IS LAYING IN BED RESTING AT THIS TIME. NEW 22 GAUGE PERIPHERAL IV STARTED IN RT. FOREARM, PT. TOLERATED PROCEDURE. RESPIRATIONS EVEN. NO S/S OF DISTRESS. CALL LIGHT IN REACH. DENIES ANY FURTHER NEEDS AT THIS TIME. CALL LIGHT IN REACH.
[2019-02-14 19:30] VITALS: BP 118/85
--- NOTE | 2019-02-14 23:45 | NUR ---
PT. CLEANED OF INCONTINENT URINE. COMPLETE LINEN CHANGE. REPOSITIONED FOR COMFORT. CALL LIGHT IN REACH.
--- NOTE | 2019-02-15 01:22 | NUR ---
PT. RESTING QUIETLY WITH EYES CLOSED. RESPIRATIONS EVEN. NO S/S OF DISTRESS. CALL LIGHT IN REACH. SR UP X 2. BED IN LOWEST POSITION. ALARM ON AND WORKING PROPERLY.
[2019-02-15 07:58] LABS: BASOPHILS 0.4 % (0-2); EOSINOPHILS 1.9 % (0-7); HEMATOCRIT 32.8 % (42.0-54.0); HEMOGLOBIN 9.5 g/dL (13.5-17.5); IMMATURE GRANULOCYTES 0.1 % (0-5); LYMPHOCYTES 18.2 % (15-50); MCH 23.5 pg (26.0-34.0); MCV 81.2 fL (80.0-100.0); MEAN PLATELET VOLUME 9.2 fL (7.4-10.4); MONOCYTES 12.8 % (2-11); NEUTROPHILS 66.6 % (40-80); PLATELET COUNT 231 10x3/uL (130-400); RBC 4.04 10x6/uL (4.20-6.10); RDW 22.3 % (11.5-14.5); WBC 7.2 10x3/uL (4.8-10.8)
[2019-02-15 08:00] VITALS: BP 109/84
--- NOTE | 2019-02-15 08:15 | NUR ---
PT RESTING IN BED WITH EYES OPEN CALL LIGHT IN REACH WILL MONITER
[2019-02-15 08:20] LABS: CALCIUM 8.1 mg/dL (8.5-10.1); CARBON DIOXIDE 26.7 mmol/L (21.0-32.0); CREATININE - SERUM 1.1 mg/dL (0.6-1.3); POTASSIUM - SERUM 3.7 mmol/L (3.5-5.1); VANCOMYCIN - TROUGH 17.9 ug/mL (10.0-20.0)
--- NOTE | 2019-02-15 11:30 | NUR ---
PT UP TO BATHROOM PT BED IS WET PT INCONTENTENT OF URINE PT HELPED TO BATHROOM WHERE HE VOIDED PT CLEANED DRYED AND DRY PULL UPS AND PANTS PUT ON PT WAS HELPED BACK TO BED WITH CALL LIGHT IN REACH AND ALARM ON WILL MONITER
--- NOTE | 2019-02-15 11:40 | NUR ---
PT AND DAUGHTER HERE AND IN ROOM ASSISTED PT OUT OF BED INTO WHEELCHAIR AT BEDSIDE
--- NOTE | 2019-02-15 13:50 | NUR ---
PT REFUSSING TO GET OF OF COMMODE CURSING AND OVER AND OVER VARIOUS PROFANINTIES OT TOOK HIM TO BATHROOM AND AFTER SEVERAL ATTEMPTS BY OT NURSING AND CORRECTIONAL SUPPLY SUPERVISOR FROM THE [facility] ALFREDA SHARP WAS CALLED DUE TO HIS INCREASED AGGITATION AND FAILURE TO COOPERATE AND DR GODLSMITH WAS CALLED WITH REPORT SINCE HE IS CONSULTED ON HIS CASE.
--- NOTE | 2019-02-15 14:25 | NUR ---
PT WAS HELPED BACK TO BED VIA NURSE FAHAD PT AGREED TO GO WITH HER AND PT WAS ADMINISTERED GEODON IM PER ORDER
--- NOTE | 2019-02-15 15:00 | NUR ---
PT RESTING IN BED WITH EYES CLOSED NO PROBLEMS WILL MONITER
--- NOTE | 2019-02-15 15:38 | PN ---
PATIENT:JEAN MARIE CARPENTER MEDICAL RECORD: [id number] LOCATION:[facility] ADMISSION DATE: 02/10/19 PROGRESS NOTE DATE OF SERVICE: 02/14/2019 SUBJECTIVE: The patient's case was discussed with staff. He has no new complaint. OBJECTIVE: The patient is disorganized and clearly quite confused. Apparently, the Geodon has made him somewhat over sedated. He has had some disruptive behaviors. ASSESSMENT: Senile dementia of the Alzheimer's type with behavioral disturbances. PLAN: Current medicines have been reviewed. I am going to stop the Geodon and we will start him on a low dose of Trilafon. Supportive care is indicated and of course addressing the possibility of underlying urinary tract infection. TRANSINT:[id number] Voice Confirmation ID: [id number] DOCUMENT ID: [id number] EVA SOUZA MD at 1538 CC: [id number] DICTATION DATE: 02/14/19 1242 WORK ORDER SORTING CLERK: 02/14/19 1755 ADM IN [place] [id number] [place] [id number]
--- NOTE | 2019-02-15 16:47 | NUR ---
CARE TEAM MEETING: PATIENT SPOUSE AND DAUGHTER ATTENDED THE MEETING. THEIR QUESTIONS AND CONCERNS WERE ADDRESSED. WILL CONTINUE TO FOLLOW WITH PATIENT. TENTIVE DISCHARGE DATE IS 02/17/2019.
--- NOTE | 2019-02-15 18:00 | NUR ---
PT HERE DISCUSSED WITH HER ADMITTING PT TO [facility] PER RECOMENDATION OF DR GROSS
--- NOTE | 2019-02-15 18:46 | NUR ---
PT RESTING IN BED WITH EYES OPEN CALL LIGHT IN REACH NO PROBLEMS WILL MONITER
[2019-02-15 19:19] VITALS: BP 137/86
--- NOTE | 2019-02-15 19:25 | NUR ---
PT. IS CURRENTLY ASLEEP AND LETHARGIC AT THIS TIME. FAMILY MEMBER AT BEDSIDE. REPORT FROM OFF GOING NURSE STATED THAT PT. HAD A GEODON PRN AT 1407 AND HAS MADE PT. SLEEPY. RESPIRATIONS EVEN. NO S/S OF DISTRESS. WCTM. CALL LIGHT IN REACH.
--- NOTE | 2019-02-15 21:45 | NUR ---
PT. AWAKE AND CONVERSING. AOX1. PT. IS EATING A SNACK AT THIS TIME, CALM IN BEHAVIOR. WCTM. CALL LIGHT IN REACH.
--- NOTE | 2019-02-16 00:41 | NUR ---
PT. RESTING QUIETLY WITH EYES CLOSED. RESPIRATIONS EVEN. NO S/S OF DISTRESS. SR UP X 3 FOR PTS. PROTECTION. BED ALARM ON AND ACTIVE. CALL LIGHT IN REACH.
--- NOTE | 2019-02-16 03:35 | NUR ---
PT. RESTING QUIETLY WITH EYES CLOSED. RESPIRATIONS EVEN. NO S/S OF DISTRESS. SR UP X 2. BED IN LOWEST POSITION. ALARM ON AND WORKING PROPERLY. CALL LIGHT IN REACH.
--- NOTE | 2019-02-16 04:04 | NUR ---
PT. AWAKE AND CLIMBING OUT OF BED. BED ALARM ALERTED THIS NURSE AND PATIENT BACK TO BED SAFELY. PT. CLEANED OF INCONTINENT URINE. CALL LIGHT IN REACH.
--- NOTE | 2019-02-16 05:30 | NUR ---
PT. AWAKE AND DISORIENTATED TO SURROUNDINGS. REORIENTATED AND REDIRECTED. PT. VERBALLY AND PHYSICALLY INAPPORIATE AT THIS TIME. REDIRECTED TO NOT GRAB AT THIS NURSE AND TO NOT USE INAPPORIATE LANGUAGE. WCTM.
[2019-02-16 08:37] VITALS: BP 142/91
--- NOTE | 2019-02-16 09:00 | NUR ---
PT ALERT, V/S TAKEN, AM MEDS GIVEN. CONTINUES TO ATTEMPT TO GROPE RN WITH R HAND, ASKED FOR A HUG, USED LEFT FOOT TO TOUCH MY HIP. INSTRUCTED BEHAVIOR WAS INAPPROPRIATE. WCTM
--- NOTE | 2019-02-16 15:12 | PN ---
PATIENT:JEAN MARIE CARPENTER MEDICAL RECORD: [id number] [facility] ADMISSION DATE: 02/10/19 PROGRESS NOTE DATE OF SERVICE: 02/15/2019 SUBJECTIVE: The patient's case was discussed and the record was reviewed. OBJECTIVE: The patient continues to have ongoing problems with behavior disinhibition. He is confused and intermittently quite aggressive with staff. ASSESSMENT: Senile dementia of the Alzheimer's type with behavioral disturbances. PLAN: This patient has been started on Trilafon for its antipsychotic effect. He had previously been taking Geodon which was causing sedation. I have gone ahead and ordered p.r.n. Geodon which he received today about an hour and a half ago after some serious aggression. He is sleepy, but arousable. I am going to place him on a scheduled dose of Ativan to assist with his agitation. His long-term prognosis is guarded and it is probably going to be necessary to transfer him to the behavioral unit, especially if he is unable to adequately participate in the activities on the rehab unit. TRANSINT:[id number] Voice Confirmation ID: [id number] DOCUMENT ID: [id number] EVA SOUZA MD at 1512 CC: [id number] DICTATION DATE: 02/15/19 1607 EINSTEIN BROS BAGELS ASSISTANT MANAGER: 02/16/19 0154 [facility] IN [place] [id number] [place] [address]
--- NOTE | 2019-02-16 18:17 | NUR ---
INCONTINENT OF BLADDER, DEPENDS. LARGE DARK BM THIS PM, INCONTINENT. 22G SALINE EVELYN RIGHT FOREARM PATENT. CONTINUES WITH INAPPROPRIATE SEXUAL COMMENTS AND ATTEMPTS TO TOUCH STAFF. WILL CONTINUE TO MONITOR.
--- NOTE | 2019-02-16 19:48 | NUR ---
AWAKE AND ALERT. RESTING IN BED. CONFUSED AND IMPULSIVE. IV TO RIGHT FOREARM INTACT. ATTEMPTED TO BITE AT NURSE DURING VITAL SIGNS. REDIRECTED PER NURSE AND WIFR. NOW RESTING TALKING TO HIMSELF BUT IS NOT ORIENTED TO PLACE TIME AND SITUATION. AT BEDISDE.
[2019-02-16 19:52] VITALS: BP 140/78
--- NOTE | 2019-02-17 00:24 | NUR ---
SLEEPING WITH RESPIRAITONS UNLABORED. NO DISTRESS NOTED. CALL LIGHT IN REACH.
--- NOTE | 2019-02-17 02:30 | NUR ---
CONTINUES RESTING IN BED WITH RESPIRATIONS UNLABORED. NO ACUTE DISTRESS NOTED.
--- NOTE | 2019-02-17 05:14 | NUR ---
QUEIT HOURS. WOKE UP BRIEFLY BUT NOW SLEEPING WITH RESPIRATIONS UNLABORED. NO ACUTE CHANGES IN CONDITION THIS SHIFT. IV INTACT.
--- NOTE | 2019-02-17 08:00 | NUR ---
PATIENT IS VERY CONFUSED. BED/CHAIR ALARM ON. ROOM BY NURSING STATION. PLAN TO DISCHARGE TO PSYCHICTRIC UNIT, [place] TODAY.
[2019-02-17 08:07] VITALS: BP 143/97
[2019-02-17 08:12] LABS: BASOPHILS 0.3 % (0-2); EOSINOPHILS 1.7 % (0-7); HEMATOCRIT 33.8 % (42.0-54.0); HEMOGLOBIN 10.1 g/dL (13.5-17.5); IMMATURE GRANULOCYTES 0.1 % (0-5); LYMPHOCYTES 21.1 % (15-50); MCH 23.8 pg (26.0-34.0); MCHC 29.9 g/dL (31.0-37.0); MCV 79.7 fL (80.0-100.0); MEAN PLATELET VOLUME 8.9 fL (7.4-10.4); MONOCYTES 8.8 % (2-11); PLATELET COUNT 258 10x3/uL (130-400); RBC 4.24 10x6/uL (4.20-6.10); RDW 22.9 % (11.5-14.5); WBC 7.5 10x3/uL (4.8-10.8)
--- NOTE | 2019-02-17 08:17 | RHP ---
PATIENT: JEAN MARIE CARPENTER MEDICAL RECORD: [id number] ACCOUNT: [id number] LOCATION:[facility]1113 : 39 ADMISSION DATE: 02/10/19 REHABILITATION HISTORY AND PHYSICAL EXAMINATION POST ADMISSION PHYSICIAN EXAMINATION DATE OF ADMISSION: 02/10/2019 ADMITTING DIAGNOSES: Jebeq-sj-hiajsyi systolic heart failure with an EF of 35% to 40% HISTORY OF PRESENT ILLNESS: The patient is a 78-year-old gentleman who has got a history to Alzheimer disease, hypertension, congestive heart failure, coronary artery disease, coronary artery bypass grafting, COPD, chronic back pain, depression and anxiety, who presented with a bronchitic cough and phlegm and increased confusion. He had frequent urinary tract infection, was on an antibiotic. When he came into the acute hospital through the ED, his reports he has been more confused with a UTI. He came in with increased confusion, chest congestion, productive cough, worsened at night. He was admitted to the acute hospital with jvmqv-xl-jbcqeho congestive heart failure. His ProBNP was elevated at that time and he had anemia with an H&H of 7.6 and 24.9. He was found to have a UTI. He received 3 units of packed red blood cells during his stay. He is currently on supplemental O2, IV antibiotic therapy, IV iron infusions, IV Lasix, increased confusion, monitoring lab values. He is on electrolyte protocol, deconditioning, weakness, debility, gait disturbance, impaired mobility, high fall risk, and self-care deficits. These are all barriers to his discharge home safely at this time. He lives at home with his , was independent with ADLs and mobility prior to this, he has Alzheimer's, he is currently sit up with max assist for his ADLs and mod assist for mobility. He and his family would like for him return home at his prior level of function or better after being in the inpatient stay. COMORBIDITIES: Include UTI. He has got bhihz-eu-ixhnawl systolic heart failure, cardiomegaly, severe tricuspid regurgitation, anemia, got a history of hypertension, coronary artery disease, COPD, osteoarthritis, chronic back pain, BPH, depression, anxiety, and confusion. PAST MEDICAL HISTORY: Significant for weakness, Alzheimer's, history of CHF, history of stent placement, COPD, arthritis, chronic back pain, prostate problems scrotal problems, depression, anxiety, and tobacco use. PAST SURGICAL HISTORY: Includes tonsillectomy and adenoidectomy, has had bypass surgery and stenting. ALLERGIES: NAPROXEN AND AMPICILLIN. CURRENT MEDICATIONS: Include Floranex 460 mg daily, Lasix 40 mg daily, omega 3 one cap daily. He is on Cardizem 240 mg daily, Celexa 40 mg daily, aspirin chewable 81 mg daily, vancomycin 1 gram q.12 hours, Ventolin 2.5 cc q.i.d. p.r.n., Altace 10 mg b.i.d., Namenda 10 mg b.i.d., Aricept 10 mg, and Xanax 0.5 mg q. 12 hours p.r.n. HABITS: He does have a history of tobacco use. FAMILY HISTORY: Noncontributory. HISTORY AND PHYSICAL [id number] JEAN MARIE ACRPENTER SOCIAL HISTORY: The patient hopes to return back home and get back to his prior level of functioning. REVIEW OF SYSTEMS: GENERAL: Does complain of some weakness and fatigue. HEENT: Denies cold, cough, or congestion. CARDIOVASCULAR: He denies any chest pain. PHYSICAL EXAMINATION: VITAL SIGNS: Stable, afebrile. GENERAL: Elderly gentleman in no acute distress, alert upon exam. HEENT: Normocephalic and atraumatic. Mucosa moist. NECK: Supple without adenopathy. LUNGS: Clear in upper [place] with no wheeze or rales. HEART: Regular rate and rhythm. He does have a holosystolic murmur. ABDOMEN: Soft, benign, and nondistended and positive bowel sounds times 4. EXTREMITIES: No clubbing, cyanosis or edema. NEUROLOGIC: A little bit slow to mentate but mainly answered most questions appropriately. LABORATORY DATA: White count 7.7, H&H 8.8 and 30.1, and platelet count is 189. His sodium is 144, potassium 3.8, BUN and creatinine of 27 and 1.0, and blood sugar was 87. ASSESSMENT: This is a 78-year-old gentleman who was admitted to the rehab with a working diagnosis of debility secondary to congestive heart failure. The patient has potential to make improvement. We instituted the following multidisciplinary therapies including, but not limited to physical, occupational, respiratory, speech, nutritional services, prosthetics and orthotics. Given his complex medical condition and chances of further medical complications, the patient cannot be taken care of at a lower level of care such as skilled nurse facility. PLAN: 1. Admit to [facility] rehab for an intensive inpatient therapy to include the following disciplines: A. Physical therapy to improve gait, all transfer skills and bed mobility to a modified independent level. B. Occupational therapy to improve activities of daily living. C. Case management to assist with discharge planning and placement options. D. Nutrition to assist with nutritional needs. E. Rehabilitation nursing to assist in monitoring the patient's underlying medical conditions and to assist with any type of bowel or bladder management. 2. The patient's current medication and medical care will be continued. 3. The patient will be placed on standard fall precautions. 4. The patient's estimated length of stay is approximately 7-10 days. 5. We will discuss the patient during care team staff meeting this week. TRANSINT:[id number] Voice Confirmation ID: [id number] DOCUMENT ID: [id number] DREW notes whether there has been none or any medical/functional change since admission: HISTORY AND PHYSICAL [id number] JEAN MARIE CARPENTER - No change since preadmission screen. DREW attests patient continues to be appropriate for IRF: - Continues to be appropriate. DEION SORENSEN MD at 0817 CC: [id number] DICTATION DATE: 02/11/19 175 EDUCATION CONSULTANT: 02/11/19 193 ADM IN [facility] [address] [place] [address]
[2019-02-17 08:24] LABS: ANION GAP 9.4 mmol/L (8-16); CALCIUM 8.5 mg/dL (8.5-10.1); CARBON DIOXIDE 29.3 mmol/L (21.0-32.0); CREATININE - SERUM 1.1 mg/dL (0.6-1.3); POTASSIUM - SERUM 3.7 mmol/L (3.5-5.1)
--- NOTE | 2019-02-17 09:24 | NUR ---
SPOKE WITH PATIENT SPOUSE MRS. CARPENTER AND SHE AGREES THAT MR. CARPENTER NEEDS TO BE ADMITTED TO [facility]. WILL CONTINUE TO FOLLOW WITH PATIENT.
--- NOTE | 2019-02-17 10:00 | NUR ---
DISCHARGE INSTRUCTIONS GIVEN. REPORT GIVEN TO PSYCHIATRIC, LONG TERM NURSE
--- NOTE | 2019-02-17 11:39 | NUR ---
PATIENT TAKEN OVER TO PSYCHIATRIC UNIT BY STAFF.
--- NOTE | 2019-02-17 11:42 | NUR ---
DUE TO CHANGE IN BEHAVIOR, PATIENT UNABLE TO PARTICIPATE IN THERAPY . DISCHARGE FROM REHAB AND ADMITTED TO NURSING HOME. SPOUSE NOTIFIED.
--- NOTE | 2019-02-17 12:12 | NUR ---
NUTRITION FOLLOW UP: COMMENTS: Patient asleep in room 1113 at time of visit. Open Ensure bottle on table. Patient being transferred to [facility]. DIET: AHA low fat/cholesterol PO INTAKE: 45% avg x 11 meals WT: 175 lbs BM: Noted dark stool on 02/16 SIG MEDS: Reviewed SIG LABS: Chloride-110 (H) WILL CONTINUE TO MONITOR CLOSELY [facility] CLINICAL DIETITIAN FOLLOWING
--- NOTE | 2019-02-17 15:48 | PN ---
PATIENT:JEAN MARIE CARPENTER MEDICAL RECORD: [id number] [facility] AD[facility] DATE: 02/10/19 PROGRESS NOTE DATE OF SERVICE: 02/16/2019 SUBJECTIVE: The patient's case was discussed with staff. He has no new complaint. OBJECTIVE: The patient has been in poor behavioral control. He has had a couple of episodes where he has attempted to grab the breasts or crotch of women who were providing care to him. I do not think he has any insight about this since obviously quite distressing to his caregivers. ASSESSMENT: Dementia. PLAN: The patient in my view is disinhibited secondary to a dementing process. I do not think additional pharmacologic management will improve the condition. I am recommending that he return home with his who tells me that she "knows how to handle him" and feels that she can manage him. I am not sure that she really can, but she has told me that she can. She says that she has done so for years and that at home and in those familiar settings, she only has difficulty with him when he develops a urinary tract infection. If she cannot care for him or his behaviors worsen between now and when he is to be discharged, I am willing to accept him on the behavioral unit for additional stabilization or attempts at additional stabilization. TRANSINT:[id number] Voice Confirmation ID: [id number] DOCUMENT ID: [id number] EVA SOUZA MD at 1548 CC: [id number] DICTATION DATE: 02/16/19 1636 RIFFLER TENDER: 02/17/19 0243 DIS IN 02/17/19 [facility] [address] [place] [address]
== END 2019-02-17 12:12 | DRG 947 ==
LOC: D.REHAB 13:00
PROVIDERS: ADMIT Emergency Medicine; ATTEND Emergency Medicine
DX: R53.81 Other malaise (principal); I50.23 Acute on chronic systolic (congestive) heart failure; N39.0 Urinary tract infection, site not specified; I51.7 Cardiomegaly; I25.10 Atherosclerotic heart disease of native coronary artery without angina pectoris; J44.9 Chronic obstructive pulmonary disease, unspecified; M19.90 Unspecified osteoarthritis, unspecified site; G89.29 Other chronic pain; N40.0 Benign prostatic hyperplasia without lower urinary tract symptoms; F41.8 Other specified anxiety disorders; G30.9 Alzheimer's disease, unspecified; F02.80 Dementia in other diseases classified elsewhere, unspecified severity, without behavioral disturbance, psychotic disturbance, mood disturbance, and anxiety; I11.0 Hypertensive heart disease with heart failure; D50.9 Iron deficiency anemia, unspecified